=== PATIENT | female | born 1955 | race Caucasian/White ===

== ENCOUNTER 2019-11-29 01:50 | Emergency (ER) | payer BC, SELFPAY ==
[2019-11-29 01:59] VITALS: BP 126/62; PULSE 84; RESP 18; TEMP 36.7; O2SAT 96; BMI 33.3
--- NOTE | 2019-11-29 02:13 | ED_ITS ---
HPI - General Adult General: Chief complaint: General Medical Stated complaint: poss new med reaction Time Seen by Provider: 11/29/19 02:05 History of Present Illness: HPI narrative: Patient started new antianxiety medication this evening. She woke up about 1:00 this morning with the reflux belching and felt like burning all over her body felt nervous. Denies any hives or itching or throat swelling said her lips felt like they were full MD complaint: Adverse med reaction Onset (ago): minute(s) Associated symptoms: Reports no associated symptoms; Deny chest pain, dyspnea, headache(s), nausea, rash or vomiting Review of Systems Narrative: Patient has a history of anxiety Dr. Madrid start her on medication for anxiety today she took it tonight and woke up with what she describes felt like burning sensation across her whole body nervous and belching with some reflux Const: Denies: fever(s), chills or body aches Eyes: Denies: change in vision or blurry vision ENMT: Denies: throat pain or nasal congestion Card: Denies: chest pain or dyspnea on exertion Resp: Denies: dyspnea, productive cough or non-productive cough GI: Denies: abdominal pain, nausea or vomiting Musc: Denies: extremity pain Skin/Breast: Denies: rash Neuro: Denies: headache(s) Psych: Denies: anxiety or depression Fuentes/Lymph: Denies: easy bruising PFSH ED PFSH: Social History Smoking and tobacco status: current every day smoker Physical Exam Const: COMMON NORMALS: no acute distress, average body habitus and patient oriented x3 HENMT: COMMON NORMALS: normocephalic HEAD & SCALP: normal to inspection and normocephalic FACE & SINUS: normal facial exam Eye: COMMON NORMALS: conjunctivae normal GENERAL EYE: appearance normal, both eyes and all related structures CONJUNCTIVA: Yes conjunctivae normal Neck/C-Spine: COMMON NORMALS: no JVD Chest: COMMONS NORMALS: normal inspection of the chest Resp: COMMON NORMALS: normal respiratory effort and clear to auscultation bilaterally AUSCULTATION: clear to auscultation bilaterally Cardio: COMMON NORMALS: no JVD, regular rate and regular rhythm RATE: r egular rate RHYTHM: regular rhythm GI: COMMON NORMALS: Normal to inspection, nondistended, normoactive bowel sounds present Extremity: COMMON NORMALS: normal to inspection and full ROM Neuro: COMMON NORMALS: patient oriented x3 Skin: COMMON NORMALS: no rashes or lesions noted and turgor normal GENERAL SKIN EXAM: no rashes or lesions noted and turgor normal Course Vital Signs: Vital signs: Vital Signs Temperature 98.0 F 11/29/19 01:59 Pulse Rate 84 11/29/19 01:59 Respiratory Rate 18 11/29/19 01:59 Blood Pressure 126/62 11/29/19 01:59 Pulse Oximetry 96 11/29/19 01:59 Coding Level of Care Code ED Android Ui Developer for Arnold Tamez
[2019-11-29] MEDS: methylPREDNISolone (DEPO) 80 MG/ML INJ 1 mL IM (02:25)
[2019-11-29] MEDS: diphenhydrAMINE 50 mg/mL SDV 1mL IM (02:30)
[2019-11-29 02:45] VITALS: BP 120/70; PULSE 76; RESP 18; O2SAT 99
--- NOTE | 2019-11-29 03:13 | PC.NURSE ---
i agree with this assessment
== END 2019-11-29 03:14 | disposition home or self-care (01) ==
PROVIDERS: Emergency Provider Nurse Practitioner Family; PCP Family Medicine
DX: T88.7XXA Unspecified adverse effect of drug or medicament, initial encounter (principal); F17.210 Nicotine dependence, cigarettes, uncomplicated
CPT/HCPCS: 12345; 96372; 99281; 99283; J1040; J1200

== ENCOUNTER → 2020-05-28 14:05 | Outpatient (BNVA) | payer BC, SELFPAY | PROVIDERS: PCP Family Medicine; Visit Provider Nurse Practitioner Family | DX: Z20.828 Contact with and (suspected) exposure to other viral communicable diseases (principal); J06.9 Acute upper respiratory infection, unspecified | CPT/HCPCS: 87635 ==

== ENCOUNTER 2021-06-05 09:04 | Outpatient (CLI) | payer OTHER, SELFPAY ==
--- NOTE | 2021-06-05 09:11 | CT_ITS ---
WS: [id number] LDCT LUNG CANCER SCREENING TECHNIQUE: Noncontrast CT of the chest with coronal and sagittal reformatted images. CLINICAL INFORMATION: HX OF TOBACCO USE COMPARISON: None. DLP: 52.21 mGy.cm DIvol: 1.[address] scans at [facility] use at least one of these dose optimization techniques: automat ed exposure control; mA and/or kV adjustment per patient size (includes targeted exams where dose is matched to clinical indication); or iterative reconstruction. FINDINGS: The lungs are well aerated. No acute pulmonary infiltrates. No suspicious pulmonary parenchymal abnor malities. Moderate esophageal hiatal hernia. No mediastinal or hilar lymphadenopathy. Adrenal glands appear normal. Degenerative changes mid thoracic spine. CT/CT lung screening [id number] IMPRESSION: LUNG-RADS: 1-Negative FOLLOW UP: 12 Month: Continue annual screening with LDCT
== END 2021-06-05 09:05 | disposition home or self-care (01) ==
LOC: CT 09:06
PROVIDERS: PCP Physician Assistant; Visit Provider Physician Assistant
DX: Z12.2 Encounter for screening for malignant neoplasm of respiratory organs (principal); Z87.891 Personal history of nicotine dependence
CPT/HCPCS: 71271

== ENCOUNTER 2021-10-23 07:19 | Outpatient (CLI) | payer OTHER, SELFPAY ==
--- NOTE | 2021-10-23 14:20 | PFTS_ITS ---
Date of Study:10/23/21 Date of Dictation: 10/24/2021 MECHANICS: Postbronchodilator forced vital capacity (FVC) is normal. Postbronchodilator forced expiratory volume in one second (FEV1) is moderately reduced 66%. FEV1/FVC is reduced. There is no significant response to bronchodilators. FLOW VOLUME LOOP: slanting of expiratory limb suggestive of airway obstruction. LUNG VOLUMES: Total lung capacity (TLC) is normal . Residual volume (RV) is normal. DIFFUSING CAPACITY FOR CARBON MONOXIDE: Normal . INTERPRETATION: The spirometry consistent with moderate airway obstruction. There is no significant response to bronchodilators. Lung volumes are normal. Normal gas transfer Please correlate clinically. MTDD
== END 2021-10-23 07:20 | disposition home or self-care (01) ==
LOC: RT 07:19
PROVIDERS: PCP Electrodiagnostic Medicine; Visit Provider Physician Assistant
DX: J44.1 Chronic obstructive pulmonary disease with (acute) exacerbation (principal)
CPT/HCPCS: 94060; 94726; 94729; J7611

== ENCOUNTER 2021-11-08 07:18 | Outpatient (CLI) | payer OTHER, SELFPAY ==
--- NOTE | 2021-11-08 07:24 | ECG_ITS ---
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 Interpretive Statements NAME OF STUDY: EXERCISE SESTAMIBI STRESS TEST INDICATION: Shortness of Breath, PROCEDURE: The baseline electrocardiogram showed normal sinus rhythm with poor R wave progression. Low voltage complexes in the precordial leads.. At the baseline, the patient's blood pressure was 114/73 mm Hg with a heart rate of 72. The patient exercised for 5 minutes and 34 seconds on a standard Marco A protocol. Patient attained a maximum heart rate of 139 beats per minute(89% of the maximum predicted heart rate) with a blood pressure at the peak exercise of 122/65 mm Hg. The EKG at the peak exercise revealed no significant changes. Patient did not have any chest pain or any significant arrhythmis with the exercise Sestamibi was injected 1 minute prior to the peak exercise During the recovery phase, there were no new changes. Blood pressure at the end of the recovery phase was 128/73 mm Hg with a heart rate of 93 per minute. CONCLUSION: 1. No significant EKG changes with the [treadmill exercise 2. No exercise-induced chest pain or cardiac arrhythmia 3. Somewhat impaired impaired exercise tolerance, attained a maximum of 7.0 METs 4. Sestamibi/Sestamibi perfusion results pending; see separate report. Electronically Signed On 11-15-2021 12:07:44 CDT by Patric Cordoba M.D. [email or web address]
--- NOTE | 2021-11-08 07:25 | NMCV_ITS ---
NM patito perf SPECT r/s* [id number] Kristal Abreu Age: 66 Gender: F : 1955 Exam Date: 11/08/2021 07:25 Ordering Phys: Staci Madrid Technologist: NATY Hinson Exam Location: [facility] Indications: SHORTNESS OF BREATH STRESS TEST Please see separate stress test report in [facility] for full findings IMAGE PROTOCOL Rest/Stress 1 Exercise Day Radiopharmaceutical Dose (mCi) Administration Site Administered by Rest: Tc-99m 10.7 IV NATY Hinson Sestamibi Stress:Tc-99m 32.4 IV NATY Harper Sestamibi Rest: 08-Nov-2021 60 Discovery 630 Stress: 08-Nov-2021 15 Discovery 630 Radiopharmaceutical was injected at 85 % maximum heart rate. Images obtained in supine and prone position. SPECT RESULTS Technical Quality: Excellent Raw Data Analysis: Normal Image Corrections: No attenuation or motion correction applied Summed Stress Score: 0 Summed Rest Score: 0 Summed Difference Score: 0 PERFUSION FINDINGS Fairly uniform myocardial tracer uptake. No significant perfusion normalities. FUNCTIONAL RESULTS (calculated via Gated SPECT) Stress Image LV EF (%): 91 Stress EDV (mL):47 TID: 0.83 Stress ESV (mL):4 FUNCTIONAL FINDINGS: Segmental wall motion analysis revealing no gross wall motion abnormalities IMPRESSIONS 1. Unremarkable myocardial perfusion imaging. 2. Normal LV ejection fraction of 91%. 3. LV wall motion analysis revealing no gross wall motion abnormalities. 4. Normal LV volume Low probability for coronary ischemia, based on the above findings Dr Patric Cordoba MD FACC (Electronically Signed) Final Date: 08 Nov 2021 12:00 S
[2021-11-08 07:35] VITALS: BMI 34.7
[2021-11-08 10:00] VITALS: BP 128/73; PULSE 96
== END 2021-11-08 07:19 | disposition home or self-care (01) ==
LOC: CDL 07:19
PROVIDERS: PCP Electrodiagnostic Medicine; Visit Provider Physician Assistant
DX: R06.02 Shortness of breath (principal)
CPT/HCPCS: 78452; 93017; A9500

== ENCOUNTER 2022-06-10 10:22 | Outpatient (CLI) | payer MEDICARE, BC, SELFPAY ==
--- NOTE | 2022-06-10 10:15 | CT_ITS ---
WS: [id number] LDCT LUNG CANCER SCREENING TECHNIQUE: Noncontrast CT of the chest with coronal and sagittal reformatted images. CLINICAL INFORMATION: lung screening/former smoker COMPARISON: None. DLP: 75.01 mGy.cm DIvol: Mean CTDIvol: 1.60 (mGy) All CT scans at [facility] use at least one of these dose optimization techniques: automat ed exposure control; mA and/or kV adjustment per patient size (includes targeted exams where dose is matched to clinical indication); or iterative reconstruction. FINDINGS:Slight patchy opacities LEFT upper lobe laterally and RIGHT lower lobe medially likely infec tious or inflammatory. No other suspicious pulmonary parenchymal opacities. Tiny calcified granuloma LEFT lower lobe. Mild thoracic curve. Mild thoracic kyphosis. Mild aortic calcification. No mediastinal or hilar lymph adenopathy. No axillary lymphadenopathy. Moderate esophageal hiatal hernia. Adrenal glands are normal. CT/CT lung screening [id number] IMPRESSION: LUNG-RADS: 3-Probably Benign FOLLOW UP: 6 Month LDCT
== END 2022-06-10 10:23 | disposition home or self-care (01) ==
LOC: RAD 10:22
PROVIDERS: PCP Electrodiagnostic Medicine; Visit Provider Internal Medicine Pulmonary Disease
DX: Z12.2 Encounter for screening for malignant neoplasm of respiratory organs (principal); Z87.891 Personal history of nicotine dependence
CPT/HCPCS: 71271

== ENCOUNTER → 2022-08-21 09:18 | Outpatient (BNVA) | payer MEDICARE, BC, SELFPAY | PROVIDERS: PCP Electrodiagnostic Medicine; Visit Provider Internal Medicine Pulmonary Disease | DX: J44.9 Chronic obstructive pulmonary disease, unspecified (principal); Z87.891 Personal history of nicotine dependence; R06.02 Shortness of breath; J31.0 Chronic rhinitis; J32.9 Chronic sinusitis, unspecified | CPT/HCPCS: 99214 ==

== ENCOUNTER 2022-12-10 09:30 | Outpatient (CLI) | payer MEDICARE, BC, SELFPAY ==
--- NOTE | 2022-12-10 09:38 | CT_ITS ---
WS: [id number] CT CHEST TECHNIQUE: Noncontrast CT of the chest with coronal and sagittal reformatted images. CLINICAL INFORMATION: follow up bilateral lung opacities COMPARISON: CT lung screening 06/19 DLP: 272.[address] scans at [facility] use at least one of these dose optimization techniques: automated e xposure control; mA and/or kV adjustment per patient size (includes targeted exams where dose is matc hed to clinical indication); or iterative reconstruction. FINDINGS:Previously described patchy opacities LEFT upper lobe laterally and RIGHT lower lobe mediall y have essentially resolved compared to previous. No new suspicious pulmonary parenchymal abnormaliti es. Normal caliber thoracic aorta. Aortic calcification. No mediastinal or hilar lymphadenopathy. No axil bushra lymphadenopathy. Large esophageal hiatal hernia. Adrenal glands are normal. Mild thoracic kyphos is. Mild thoracic curve. Disc space narrowing worse in the mid thoracic spine. CT/CT chest wo con [id number] IMPRESSION: 1. Previously described patchy opacities LEFT upper lobe laterally and RIGHT l ower lobe medially have essentially resolved compared to previous. No new suspi cious pulmonary parenchymal abnormalities. 2. Large esophageal hiatal hernia is unchanged. 3. No other suspicious findings.
== END 2022-12-10 09:31 | disposition home or self-care (01) ==
PROVIDERS: PCP Electrodiagnostic Medicine; Visit Provider Internal Medicine Pulmonary Disease
DX: J44.9 Chronic obstructive pulmonary disease, unspecified (principal); Z87.891 Personal history of nicotine dependence; K44.9 Diaphragmatic hernia without obstruction or gangrene
CPT/HCPCS: 71250

== ENCOUNTER → 2023-02-18 10:22 | Outpatient (BNVA) | payer MEDICARE, BC, SELFPAY | PROVIDERS: PCP Electrodiagnostic Medicine; Visit Provider Internal Medicine Pulmonary Disease | DX: J44.9 Chronic obstructive pulmonary disease, unspecified (principal); J31.0 Chronic rhinitis; J32.9 Chronic sinusitis, unspecified | CPT/HCPCS: 99214 ==

== ENCOUNTER → 2023-10-21 08:44 | Outpatient (BNVA) | payer MEDICARE, BC, SELFPAY | PROVIDERS: PCP Electrodiagnostic Medicine; Visit Provider Internal Medicine Pulmonary Disease | DX: J44.9 Chronic obstructive pulmonary disease, unspecified (principal); J31.0 Chronic rhinitis; J32.9 Chronic sinusitis, unspecified; Z87.891 Personal history of nicotine dependence | CPT/HCPCS: 99214 ==

== ENCOUNTER → 2023-11-24 09:38 | Outpatient (BNVA) | payer MEDICARE, BC, SELFPAY | PROVIDERS: PCP Electrodiagnostic Medicine; Visit Provider Student in an Organized Health Care Education/Training Program | DX: M75.41 Impingement syndrome of right shoulder; M75.31 Calcific tendinitis of right shoulder | CPT/HCPCS: 20610; 73030; 99204 ==

== ENCOUNTER → 2024-03-04 08:00 | Outpatient (BNVA) | payer MEDICARE, BC, SELFPAY | PROVIDERS: PCP Electrodiagnostic Medicine; Visit Provider Physician Assistant | DX: M75.41 Impingement syndrome of right shoulder (principal); M75.31 Calcific tendinitis of right shoulder | CPT/HCPCS: 99213 ==

== ENCOUNTER 2024-04-27 08:59 | Outpatient (CLI) | payer MEDICARE, BC, SELFPAY ==
--- NOTE | 2024-04-27 09:00 | MM_ITS ---
WS: [id number] BILATERAL SCREENING DIGITAL TOMOSYNTHESIS MAMMOGRAM WITH CAD HISTORY: SCREENING COMPARISON: 04/28/2018 Bilateral CC and MLO views with tomosynthesis and synthetic mammography submitted. Computer aided det ection analyzed. Breast composition: The breasts are almost entirely fatty. No suspicious masses, microcalcifications or architectural distortion. MM/MM scr BI tomosynthesis [id number] IMPRESSION: BI-RADS: 1 - Negative. FOLLOW UP: 1 Year Follow-up
== END 2024-04-27 09:00 | disposition home or self-care (01) ==
LOC: MOBLMAM 09:04
PROVIDERS: PCP Electrodiagnostic Medicine; Visit Provider Electrodiagnostic Medicine
DX: Z12.31 Encounter for screening mammogram for malignant neoplasm of breast (principal); R92.313 Mammographic fatty tissue density, bilateral breasts
CPT/HCPCS: 77063; 77067

== ENCOUNTER 2024-07-01 10:57 | Outpatient (CLI) | payer MEDICARE, BC, SELFPAY ==
--- NOTE | 2024-07-01 11:06 | CT_ITS ---
WS: [id number] LDCT LUNG CANCER SCREENING HISTORY: HX OF TOBACCO USE TECHNIQUE: Axial imaging performed from the apices to 1 cm below the costophrenic angles. Coronal and sagittal reformats are submitted with axial MIP series. All CT scans at [facility] use at least one of these dose optimization techniques: automated exposure control; mA and/or kV adjustment per patient size (includes targeted exams where dose is matched to clinical indication); or iterativ e reconstruction. DLP: 61.40 mGy.cm DIvol: Mean CTDIvol: 1.40 (mGy) COMPARISON: 12/10/2022 Diagnostic quality: Satisfactory Lungs: Hypoinflated lungs. No pulmonary mass. New nodules are subsolid in the posterior RIGHT lower l obe. There are 2 subsolid nodules with the largest measuring 10 mm. These were not present on the kraig or study. No endobronchial lesions. Heart: Normal size heart with no pericardial effusion.. Other findings: Small mediastinal and hilar lymph nodes. Minimal atherosclerosis thoracic aorta. Norm al size pulmonary artery. Large hiatal hernia. No adrenal mass. CT/CT lung screening [id number] IMPRESSION: LUNG-RADS: 4A-Probably Suspicious FOLLOW UP: 3 Month LDCT OTHER FINDINGS (S MODIFIER): None.
== END 2024-07-01 10:58 | disposition home or self-care (01) ==
LOC: RAD 11:02
PROVIDERS: PCP Electrodiagnostic Medicine; Visit Provider Electrodiagnostic Medicine
DX: Z12.2 Encounter for screening for malignant neoplasm of respiratory organs (principal); Z87.891 Personal history of nicotine dependence; R91.8 Other nonspecific abnormal finding of lung field; K44.9 Diaphragmatic hernia without obstruction or gangrene; J84.89 Other specified interstitial pulmonary diseases
CPT/HCPCS: 71271

== ENCOUNTER 2024-07-26 13:09 | Outpatient (CLI) | payer MEDICARE, BC, SELFPAY ==
--- NOTE | 2024-07-26 13:11 | CT_ITS ---
WS: [id number] CT chest w con* [id number] HISTORY: SOLITARY LUNG NODULE TECHNIQUE: Axial imaging performed through the thorax. Coronal and sagittal reformats are submitted. All CT scans at [facility] use at least one of these dose optimization techniques: automated exposure control; mA and/or kV adjustment per patient size (includes targeted exams where dose is mat ched to clinical indication); or iterative reconstruction. CONTRAST: Omnipaque 350; 100 mL IV. DLP: 335.30 mGy.cm COMPARISON: 07/01/2024 Lungs and central airway: Mild pulmonary hyperinflation. Previously described subsolid, subpleural no dules in the RIGHT lower lobe are reidentified. The largest is 1.4 cm. Smaller nodule measures 0.7 cm . No new or enlarging pulmonary mass. Pleura: Normal. No pleural effusion. Heart and pericardium: Normal size heart with no pericardial effusion. Mediastinum and karl: Indeterminate hilar lymph nodes. Largest is 11 mm at the LEFT hilum. Small para tracheal lymph nodes. Paratracheal lymph nodes appear to be slightly smaller in size than 07/01/2024. Vessels: Normal size aortic and pulmonary artery. No coronary artery calcifications. Chest wall and lower neck: No soft tissue masses. Upper abdomen: Contracted gallbladder, probably due to nonfasting state. Normal adrenal glands. Large esophageal hernia. Osseous structures: Degenerative changes in the thoracic spine. Disc spaces are narrowed. Osteoblasti c changes are noted involving the anterior endplates of several midthoracic vertebral bodies. CT/CT chest w con* [id number] IMPRESSION: 1. Slightly improved subsolid opacifications RIGHT lower lobe since 07/01/2024. This is only a 3-week follow-up CT from 07/01/2024. Consider additional chest CT follow-up in 6 months. 2. 11 mm LEFT hilar lymph node. Probably reactive. May've been present on prio r studies but these were performed without IV contrast. 3. Large hiatal hernia.
[2024-07-26] MEDS: iohexol 350 mg/mL 500 mL Btl (per mL) IV (13:29)
== END 2024-07-26 13:10 | disposition home or self-care (01) ==
LOC: RAD 13:10
PROVIDERS: PCP Electrodiagnostic Medicine; Visit Provider Electrodiagnostic Medicine
DX: R91.8 Other nonspecific abnormal finding of lung field (principal); R59.0 Localized enlarged lymph nodes; K44.9 Diaphragmatic hernia without obstruction or gangrene; M47.894 Other spondylosis, thoracic region; R93.7 Abnormal findings on diagnostic imaging of other parts of musculoskeletal system
CPT/HCPCS: 71260

== ENCOUNTER → 2024-07-28 15:26 | Outpatient (BNVA) | payer MEDICARE, BC, SELFPAY | PROVIDERS: PCP Electrodiagnostic Medicine; Visit Provider Physician Assistant | DX: M75.31 Calcific tendinitis of right shoulder (principal); M75.41 Impingement syndrome of right shoulder | CPT/HCPCS: 20610; 99213; J3301 ==

== ENCOUNTER → 2024-11-01 15:25 | Outpatient (BNVA) | payer MEDICARE, BC, SELFPAY | PROVIDERS: PCP Electrodiagnostic Medicine; Visit Provider Physician Assistant | DX: M75.31 Calcific tendinitis of right shoulder (principal); M75.41 Impingement syndrome of right shoulder; G56.03 Carpal tunnel syndrome, bilateral upper limbs; G56.01 Carpal tunnel syndrome, right upper limb | CPT/HCPCS: 73030; 99213 ==

== ENCOUNTER 2024-11-03 10:59 | Outpatient (CLI) | payer MEDICARE, BC, SELFPAY ==
--- NOTE | 2024-11-03 11:00 | MR_ITS ---
WS: [id number] MRI RIGHT SHOULDER HISTORY: impingement of right shoulder COMPARISON: Radiograph 11/01/2024 TECHNIQUE: Multiplanar sequences of the shoulder joint are submitted. Moderate AC joint arthritis. There is fluid through the AC joint with hypertrophic bone and soft tissue surround the distal clavicle and acromion. Small amount of fluid in the subacromial and subdeltoid bursa. Moderate subacromial impingement. Enthesopathy along the distal undersurface of the acromion measures 3 mm. No os acromion. Biceps tendon normally positioned in the bicipital groove. Hypointense nodule in the distal supraspinatus tendon consistent with hydroxyapatite deposition disease. Calcific deposition measures 10 mm. There are several small calcific deposits along the supraspinatus tendon. Additional tendinopathy in the supraspinatus tendon at the level of the subacromial impi ngement. No muscle atrophy or edema. Supraspinatus tendon and muscle are being deformed by the AC joint hypertrophic changes. Subscapularis tendon and the infraspinatus tendons and teres minor are intact. No labral tear. There is an additional hypointense nodule measuring 5 mm closely associated with the bicipital groove and the distal subscapularis tendon. I suspect this is additional calcific deposit which is displacing the distal subscapularis tendon. MR/MR shoulder RT wo con* [id number] IMPRESSION: 1. Calcific tendinitis involving the distal supraspinatus tendon. Small cluste r of calcium deposition measuring 10 mm. 2. Moderate AC joint arthritis. 3. Tendinopathy in the distal supraspinatus tendon secondary to subacromial im pingement. 4. Moderate subacromial impingement. 5. Additional osteophyte or calcific deposit associated with the bicipital dafne ove displacing the distal subscapularis tendon.
== END 2024-11-03 11:00 | disposition home or self-care (01) ==
LOC: RAD 11:01
PROVIDERS: PCP Electrodiagnostic Medicine; Visit Provider Physician Assistant
DX: M75.31 Calcific tendinitis of right shoulder (principal); M75.41 Impingement syndrome of right shoulder; M19.011 Primary osteoarthritis, right shoulder; M67.813 Other specified disorders of tendon, right shoulder; M25.711 Osteophyte, right shoulder; M89.38 Hypertrophy of bone, other site; R93.7 Abnormal findings on diagnostic imaging of other parts of musculoskeletal system
CPT/HCPCS: 73221

== ENCOUNTER → 2024-12-01 07:51 | Outpatient (BNVA) | payer MEDICARE, BC, SELFPAY | PROVIDERS: PCP Electrodiagnostic Medicine; Referring Provider Physician Assistant; Visit Provider Psychiatry & Neurology Neurology | DX: G56.01 Carpal tunnel syndrome, right upper limb (principal) | CPT/HCPCS: 95912 ==

== ENCOUNTER → 2024-12-27 09:24 | Outpatient (BNVA) | payer MEDICARE, BC, SELFPAY | PROVIDERS: PCP Electrodiagnostic Medicine; Visit Provider Student in an Organized Health Care Education/Training Program | DX: M75.31 Calcific tendinitis of right shoulder (principal); M75.41 Impingement syndrome of right shoulder; G56.01 Carpal tunnel syndrome, right upper limb | CPT/HCPCS: 20610; 99214; J3301; J9999 ==

== ENCOUNTER 2025-02-08 06:57 | Outpatient (CLI) | payer MEDICARE, BC, SELFPAY ==
--- NOTE | 2025-02-08 07:08 | CT_ITS ---
WS: [id number] CT chest w con* [id number] HISTORY: MULTIPLE LUNG NODULES TECHNIQUE: Axial imaging performed through the thorax. Coronal and sagittal reformats are submitted. All CT scans at [facility] use at least one of these dose optimization techniques: automated exposure control; mA and/or kV adjustment per patient size (includes targeted exams where dose is matched to clinical indication); or iterative reconstruction. CONTRAST: Omnipaque 350; 100 mL IV. DLP: 300.29 mGy.cm COMPARISON: 07/26/2024, 07/01/2024, 12/10/2022 Lungs and central airway: Hyperinflated lungs with centrilobular emphysema. Reidentified are the subsolid opacifications in the posterior RIGHT lower lobe. The largest subsolid opacification is increased in size measuring 14 x 9 mm. Central lucency is new. The smaller subsolid opacification has not changed with a maximum diameter of 9 mm. No additional suspicious masses or nodules. Pleura: Normal. No pleural effusion. Heart and pericardium: Normal size heart with no pericardial effusion. Mediastinum and karl: No increase in size of mediastinal or hilar lymph nodes. The identified is the 9 mm LEFT hilar lymph node which has not increased in size. Vessels: Normal size aortic and pulmonary artery. No coronary artery calcifications. Chest wall and lower neck: No soft tissue masses. Upper abdomen: Large hiatal hernia. Visualized liver and adrenal glands are negative. Osseous structures: Mild increase in thoracic kyphosis. CT/CT chest w con* [id number] IMPRESSION: 1. Slight increase in size of the subsolid opacification in the periphery of t he RIGHT lower lobe now measuring 14 x 9 mm. The smaller opacification has not changed. Recommend continued imaging follow-up. Recommend follow-up chest CT in 6 months. PET/CT may be of benefit at this time also. Low-grade neoplasm needs to be excluded. 2. No mediastinal or hilar adenopathy. 3. Centrilobular emphysema.
[2025-02-08 07:50] LABS: Blood Urea Nitrogen 11 mg/dL (8-23)
[2025-02-08] MEDS: iohexol 350 mg/mL 500 mL Btl (per mL) IV (07:50)
== END 2025-02-08 06:58 | disposition home or self-care (01) ==
LOC: RAD 06:58
PROVIDERS: Radiology Diagnostic Radiology; PCP Electrodiagnostic Medicine; Visit Provider Electrodiagnostic Medicine
DX: R91.8 Other nonspecific abnormal finding of lung field (principal); J43.2 Centrilobular emphysema; M40.204 Unspecified kyphosis, thoracic region; K44.9 Diaphragmatic hernia without obstruction or gangrene
CPT/HCPCS: 71260; 82565; 84520

== ENCOUNTER 2025-03-24 10:24 | Outpatient (CLI) | payer MEDICARE, BC, SELFPAY ==
--- NOTE | 2025-03-24 10:32 | PETR_ITS ---
PROCEDURE INFORMATION: Exam: PET/CT Whole Body Exam date and time: 03/24/2025 11:38 AM Age: 70 years old Clinical indication: Abnormal findings; Abnormal finding of lung field; Additional info: Multiple nodules of the lung LABS AND CLINICAL REPORTS: Glucose: 122 mg/dl Treatment strategy for malignancy (PET staging): Restaging (PS) TECHNIQUE: Imaging protocol: Following at least four-hour fasting and following the injection of radiopharmaceutical, low dose CT images were obtained. Then, PET images were obtained. Attenuation corrected images were constructed using the CT scan. Fused images of PET and CT were reviewed. The standardized uptake values (SUV) reported below are maximum values within a region of interest, expressed in gm/ml. Exam includes the whole body. SUV normalization method: BodyWeight Radiopharmaceutical: 10.6 mCi F-18 FDG (Fluorodeoxyglucose), IV. Time of imaging post radiopharmaceutical administration: 47 minutes Injection site: LAC COMPARISON: 1. CT chest wo con [id number] 12/10/2022 9:[address] chest w con* [id number] 02/08/2025 7:31 AM FINDINGS: Brain: Visualized brain has normal physiologic uptake. Paranasal sinuses: Non FDG avid left maxillary sinus mucous retention cysts. Otherwise clear. Pharynx: Symmetric tonsillar FDG uptake without underlying CT abnormality is likely benign physiologic or inflammatory. Larynx: No abnormal uptake. Lungs, pleura and trachea: No abnormal uptake. Mild dependent atelectasis. 1.4 cm subpleural posterior right lower lobe opacity on axial image 424 is non FDG avid. No consolidation or mass. Heart: Normal physiologic uptake. Mediastinal space: No abnormal uptake. Diaphragm: Moderate hiatal hernia. Liver: No abnormal uptake. Gallbladder and biliary ducts: No abnormal uptake. Pancreas: No abnormal uptake. Spleen: No abnormal uptake. Adrenal glands: No abnormal uptake. Kidneys and ureters: Normal physiologic uptake. Stomach and bowel: No abnormal uptake. Colonic diverticulosis without findings of diverticulitis. Vasculature: No abnormal uptake. Mild systemic atherosclerotic calcification without aortic aneurysm. Lymph nodes: Low-level FDG uptake at nonenlarged mediastinal nodes and bilateral karl. Skeleton: Degenerative change along the axial skeletal system and acromioclavicular joints. Soft tissues: Linear FDG uptake at posterior left shoulder musculature without underlying CT abnormality is likely strain or possibly physiologic activation. Low-level uptake along the posterior paraspinal upper back musculature, bilateral forearms, and bilateral anterior tibialis and foot musculature without underlying CT abnormality is likely benign physiologic activation. METRICS: Mediastinal blood pool: SUV mean 2.6 Liver uptake: SUV mean 2.8 PET/PET skull to thigh INIT [id number] IMPRESSION: 1. Non FDG avid 1.4 cm subpleural posterior right lower lobe opacity favors benignity, indolent neoplasm difficult to entirely exclude. Continued follow-up chest CT recommended. 2. Low-level FDG uptake at nonenlarged mediastinal lymph nodes and bilateral karl likely benign granulomatous or reactive. 3. Additional chronic and incidental findings as above.
== END 2025-03-24 10:25 | disposition home or self-care (01) ==
PROVIDERS: PCP Electrodiagnostic Medicine; Visit Provider Electrodiagnostic Medicine
DX: R91.8 Other nonspecific abnormal finding of lung field (principal)
CPT/HCPCS: 78815; A9552

== ENCOUNTER → 2025-04-04 13:23 | Outpatient (BNVA) | payer MEDICARE, BC, SELFPAY | PROVIDERS: PCP Electrodiagnostic Medicine; Visit Provider Student in an Organized Health Care Education/Training Program | DX: M75.41 Impingement syndrome of right shoulder (principal); M75.31 Calcific tendinitis of right shoulder; M75.21 Bicipital tendinitis, right shoulder; M19.011 Primary osteoarthritis, right shoulder | CPT/HCPCS: 99214 ==

== ENCOUNTER 2025-05-01 14:19 | Outpatient (CLI) | payer MEDICARE, BC, SELFPAY ==
--- NOTE | 2025-05-01 14:28 | MM_ITS ---
WS: [email or web address] BILATERAL 3D TOMOSYNTHESIS DIGITAL SCREENING MAMMOGRAPHY WITH CAD CLINICAL INFORMATION: SCREENING HISTORY: Screening mammogram. No current complaints. COMPARISON: 2023 TECHNIQUE: Bilateral CC and MLO views. FINDINGS: Scattered fibroglandular densities bilaterally. No suspicious focal mass, asymmetry, calcifications, or architectural distortion. No evidence of malignancy. Lucent centered calcification LEFT breast MM/MM scr BI tomosynthesis [id number] IMPRESSION: DENSITY: There are scattered areas of fibroglandular density. BI-RADS: 2 - Benign. FOLLOW UP: 1 Year Follow-up Recommend return to annual screening mammography.
== END 2025-05-01 14:20 | disposition home or self-care (01) ==
LOC: RAD 14:20
PROVIDERS: PCP Electrodiagnostic Medicine; Visit Provider Electrodiagnostic Medicine
DX: Z12.31 Encounter for screening mammogram for malignant neoplasm of breast (principal); R92.323 Mammographic fibroglandular density, bilateral breasts; R92.1 Mammographic calcification found on diagnostic imaging of breast
CPT/HCPCS: 77063; 77067

== ENCOUNTER 2025-05-04 12:25 | Day surgery (SDC) | payer MEDICARE, BC, SELFPAY ==
[2025-05-04] VITALS (11 sets, daily range): BP systolic 87–119; BP diastolic 59–82; PULSE 60–75; RESP 12–18; TEMP 36.1–36.3; O2SAT 90–100; BMI 30.7
[2025-05-04] MEDS: acetaminophen 1,000 MG/100 ML PIGGYBACK 400 MG IV (13:45)
--- NOTE | 2025-05-04 13:52 | W.PM.OPSUD ---
Surgery/Procedure H&P Update DATE OF PROCEDURE: May 04, 2025 DATE H&P PERFORMED: 04/04/25 H&P UPDATE INFORMATION: I have reviewed H&P completed within last 30 days, I have examined patient prior to procedure and No changes to prior documentation PREOP DIAGNOSIS: Right shoulder cuff impingement, calcific tendinitis, biceps tendinitis, AC PRIMARY INDICATION FOR PROCEDURE: Right shoulder cuff impingement, calcific tendinitis, biceps tendinitis, AC arthritis PLANNED PROCEDURE: Operation Date: 05/04/25 15:30 Proposed Procedures p RIGHT Shoulder Diagnostic and Surgical Arthroscopy w/ Excision of Calcific Tendonitis(Right) - Luis Osuna DO s Subacromial Decompression(Right) - DO tano Peñaloza Acromioclavicular (AC) Joint Resection(Right) - DO tano Peñaloza POSSIBLE Rotator Cuff Debridement Vs. Repair(Right) - DO tano Peñaloza POSSIBLE Biceps Tenotomy vs. Tenodesis(Right) - Luis Osuna DO
[2025-05-04] MEDS: ceFAZolin 2,000 MG in sodium chloride 0.9% (plus) 50 ML 100 MG IV (14:04)
--- NOTE | 2025-05-04 14:19 | ANES.PROC ---
Anesthesia Procedures Procedure/Date: 05/04/25 Right interscalene peripheral nerve block for postoperative pain control Nerve Block ^: Nerve Block 1: Main Anesthesia: other (100 mcg of fentanyl) Time Out Performed: Yes Consent: requested by attending/covering physician and from patient Laterality: Right Nerve block location: interscalene Anesthesia monitors applied: pulse oximetry, EKG, BP cuff and oxygen Nerve block position: supine Anesthetic Used: ropivicaine 0.5% Amount of anesthesia used (mL): 30 Ultrasound used to: recognize landmarks Nerve Stimulator Used?: Yes Interscalene/Femoral BLK: other needle (pjunk 4inch) Injection: neg aspiration of heme Patient Tolerated Procedure: well Complications: none Additional Comments: Decadron 4 mg added to block
--- NOTE | 2025-05-04 16:11 | W.PM.BPON ---
Date of Procedure: [May 04, 2025] Surgeon: [Dr. Osuna DO] Ticket Dispenser Changer(s): [Rylan Osuna PA-C] Procedure(s) performed: Right shoulder diagnostic and surgical arthroscopy AC joint resection Loose body removal Subacromial decompression Biceps tenodesis Subscapularis repair and rotator cuff repair Calcific tendinitis excision Labral debridement] Findings of the procedure(s): [Right shoulder AC joint arthritis, loose bodies, subacromial bursitis, biceps tendon partial tearing, subscapularis tear and rotator cuff tear and calcific tendinitis and labral partial tearing. Procedure went well and is planned] Estimated blood loss: [10 ml] Specimen(s) removed: [N/A] Post-operative diagnosis: [Right shoulder AC joint arthritis, loose bodies, subacromial bursitis, biceps tendon partial tearing, subscapularis tear and rotator cuff tear and calcific tendinitis and labral partial tearing]
--- NOTE | 2025-05-04 16:21 | PM.PACU ---
PACU note Narrative: Patient is a 70-year-old female that just right shoulder arthroscopy. Patient transferred to PACU in stable condition. Pain is well controlled. shoulder Dressing on , dry and in place. Patient's operative arm is in a shoulder immobilizer. Patient is awake and alert and able to respond to my questions accordingly. Patient's fingers are warm with good perfusion. Normal cap refill under 2 seconds. Unable to assess further range of motion in arm due to sling. Sensation hand intact. Patient can wiggle fingers. Exam: awake Disposition: discharged
--- NOTE | 2025-05-04 16:22 | P.OP_ITS ---
Operative Report Date of procedure: May 04, 2025 Surgeon: Luis Osuna DO Design Engineering Manager: Rylan Osuna PA-C: PA was necessary for assistance in this case with shoulder positioning to execute the procedure, assistance with instrumentation, as well as implant fixation when necessary, assist with wound closure and dressing application. Procedure: Preoperative diagnosis: Right shoulder cuff impingement, calcific tendinitis, biceps tendinitis, AC arthritis Post-op diagnosis: Right shoulder AC joint arthritis, loose bodies, subacromial bursitis, biceps tendon partial tearing, subscapularis tear and rotator cuff tear and calcific tendinitis and labral partial tearing Procedure done: Right?shoulder?diagnostic and surgical arthroscopy with arthroscopic rotator cuff repair (small) Right?shoulder?diagnostic and surgical arthroscopy biceps tenodesis Right?shoulder?diagnostic and surgical arthroscopy labral debridement Right shoulder diagnostic and surgical arthroscopy with loose bodies removal Right shoulder diagnostic and surgical arthroscopy with subscapularis tendon repair Right shoulder diagnostic and surgical arthroscopy with calcific tendinitis excision Right?shoulder?diagnostic and surgical arthroscopy acromioclavicular joint resection Right?shoulder?diagnostic and surgical arthroscopy subacromial decompression (acromioplasty and bursectomy) Surgeon: Luis Osuna DO Estimated blood loss: 10mL IV fluids: 1200 mL Implants: Arthrex 4.75 loop and tack bicep tenodesis kit Arthrex 4.75 swivel lock Arthrex scorpion and suture tape Complications: None Condition: stable Disposition: same day Brief History: Patient been seen and worked up in the outpatient setting for?right?shoulder?pain.? Pt had an MRI which showed findings below.? Patient's failed conservative treatment and has weakness.? We talked about treatment options far as nonoperative and operative intervention..? We talked about risk benefits complication alternatives surgical nonsurgical treatment options.? Understanding risk of surgery she agrees to proceed with surgical intervention.? All questions have been answered at this time.? Patient elects proceed with surgery and consent obtained in preoperative holding area for right shoulder diagnostic and surgical arthroscopy with subacromial decompression, AC joint resection, possible rotator cuff debridement versus repair, calcific tendinitis excision, possible bicep tenotomy versus tenodesis. MR/MR shoulder RT wo con* [id number] IMPRESSION: 1. Calcific tendinitis involving the distal supraspinatus tendon. Small cluster of calcium deposition measuring 10 mm. 2. Moderate AC joint arthritis. 3. Tendinopathy in the distal supraspinatus tendon secondary to subacromial impingement. 4. Moderate subacromial impingement. 5. Additional osteophyte or calcific deposit associated with the bicipital groove displacing the distal subscapularis tendon. Procedure: Patient seen evaluated in the preoperative holding area.? Consent reviewed and signed with patient.? Once again reviewed patient's MRI results as well as? planned surgical intervention.? Correct extremity marked.? Patient seen evaluated by anesthesia department received regional anesthesia.? Once ready for surgery was taken back to the operative suite.? Patient then subsequently underwent anesthesia per the anesthesia department was transported onto the OR table.? Patient was then placed into a lateral decubitus position with a beanbag and was appropriately secured to the bed.? All bony prominences well-padded.? Patient then had the?right?upper extremity was then prepped and draped in standard orthopedic fashion.? Patient received appropriate preoperative antibiotics.? Final timeout performed. The?right?upper extremity was then held in hanging from traction utilizing sterile technique.? Next started with standard diagnostic and surgical arthroscopy with posterior portal position introduced arthroscope into the glenohumeral joint.? Visualized the glenohumeral joint I then introduced a spinal needle within the rotator cuff interval to confirm appropriate anterior portal placement.? Once this was confirmed I then made my small incision and then introduced my arthroscopic shaver into the glenohumeral joint.? Immediately in the glenohumeral joint there was a cluster of Multiple cartilaginous loose bodies altogether I introduced arthroscopic shaver as these were small but numerous and introduced arthroscopic shaver and evacuated all loose bodies cartilage. Patient was found to have a tear at the upper third border of the subscapularis tendon patient was also found to have unstable bicep tendon anchor complex at the superior labral complex with superior labral tearing. As result plan was for subscapularis tendon repair and biceps tenodesis. patient had biceps tendon tearing as well as Superior labral tear. Patient had appreciable unstable biceps anchor most pronounced in the superior labrum. Given there appears to be healthy intra-articular tendon plan was for an intra- articular biceps tenodesis at the superior portion as it enters the intertubercular groove. Thermal wand introduced into the rotator interval. I then release of the rotator interval to have appropriate visualization and the ability to perform biceps tenodesis. At this point I established a purple passport cannula which was introduced. Next I performed an Arthrex loop and tack biceps tenodesis. Passer was then made around the tendon luggage tag stitch around and then thru the tendon per Arthrex protocol, I then utilized a thermal wand to release the biceps tendon at the anchor to perform with tenotomy. Next I utilized a arthroscopic scorpion and the suture passer from the tenodesis kit to make a passed through the upper third border at the site of the tear of the subscapularis tendon I utilized a fiber link suture to luggage tag this and then subsequently purchase through the tendon again I had bluntly freed up adhesions anteriorly and posteriorly so I had direct visualization of just passing this through the upper third border the subscapularis tendon once this had excellent purchase I then loaded this into the Arthrex 4.75 swivel lock in addition to loading the suture from the bicep tenodesis. A punch was then placed in appropriate position at the entry point into the intertubercular groove just superior to the subscapularis tendon. Punch was then introduced to the appropriate depth. The suture loaded on the swivel lock was then advanced held under appropriate tension and shoulder lock anchor was then advanced and had excellent fixation. Excess suture was then cut biceps tenodesis and subscapularis tendon repair was complete. I then utilized a thermal wand to seal the edges of the superior labrum. ?Next there was significant labral tearing at biceps anchor and circumferential.? ? I then subsequently utilized a a arthroscopic shaver and thermal wand to perform a labral debridement.? This point time I then visualized the glenohumeral joint.? 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 Axillary pouch was free of loose bodies from viewing the posterior portal.? Next a visualized the rotator cuff superiorly and there was found to be a small undersurface fraying of the rotator cuff. At this point I am introduced arthroscopic shaver and gently debrided the undersurface of the rotator cuff at this spot. This completed my work intra-articular moved to the subacromial space. all fluid was suctioned free of the joint.? ?Next I reintroduced the arthroscope posteriorly.? And went to the subacromial space.? I established my lateral working portal. Thermal wand was then introduced laterally and then I subsequently performed extensive bursectomy of the subacromial space.? Patient had a large anterior bone spur.? At this point time I proceeded with my AC joint resection thermal wand was used and track to the anterior edge of the acromion and then tracked all the way to the AC joint.? Once identified the AC joint this was very arthritic in nature.? Thermal wand was placed anteriorly to establish appropriate plane for AC joint resection.? Once appropriate margins and anterior inferior and anterior capsule was released I then introduced arthroscopic shaver and a bur and performed AC joint resection of both the acromion to cope plane at the AC joint and a distal clavicle resection was then performed totaling 1 cm in size and was confirmed.? This completed my AC joint resection and I then introduced the arthroscopic shaver laterally while continuing to view posteriorly.? I then performed an acromioplasty to complete my subacromial decompression prior to evaluating for possible rotator cuff tear and calcific tendinitis. At this point in time the shoulder was taken through range of motion and there was a large appreciable calcium deposit on the anterior border of the supraspinatus tendon this communicated interval which once again confirmed this being near the biceps tendon. That was seen on MRI. I subsequently utilized a spinal needle and fenestrated the rotator cuff to create a vent holes for the calcific tendinitis I then numerous times thoroughly irrigated and expressed all aspects of the calcific tendinitis this was consistent with roughly a centimeter in size. At this point in time once this was evacuated to its entirety there was a remnant of a hole full-thickness rotator cuff tear anteriorly on the supraspinatus tendon. Given the small size this did not need a medial and lateral row configuration as result my plan was for a horizontal mattress stitch with a single lateral row anchor.? As result I loaded and Arthrex scorpion with fiber tape and subsequently.? A horizontal mattress purchase appropriately spaced to the small tear of the supraspinatus tendon.? At this point in time and then introduced a shaver to debride the rotator cuff footprint and decorticate the footprint in preparation for repair, next I marked by swivel lock position.? Fiber tape was then loaded into a 4.75 swivel lock I then subsequently punched and then subsequently placement 4.75 swivel lock while maintaining appropriate tension and repair of rotator cuff and this was advanced with excellent fixation I then had a final confirmation of appropriate repair of the supraspinatus rotator cuff tendon tear.? Sutures were then cut with an arthroscopic suture cutter and subsequently evaluated the rotator cuff repair.? Repair was found to be satisfactory?shoulder?was taken through range of motion and the repair moved as a unit with no evidence of loss of fixation. ?I then switched the arthroscope to the lateral portal to confirm this tension- free repair.? I took the?shoulder?through range of motion and the rotator cuff repair was stable and moved as a unit. ?Next I then introduced the arthroscopic shaver posteriorly to complete my subacromial decompression appropriate complaining all the way up to the lateral edge of the acromion.? This completed the surgery.? All fluid was suctioned from the?shoulder.? All instruments were removed.? The lateral incision was then closed with nylon stitches.? As well as the portal sites closed with portal nylon stitches.? Xeroform 4 x 4's ABD and tape was then applied to the?right?shoulder?and was placed into a?shoulder?abduction pillow sling for rotator cuff repair.? Patient was then awakened from anesthesia and then taken back to PACU in stable condition.? Patient tolerated procedure without any issues. Disposition: Patient taken back in stable condition recovering well.? Dressings on in place clean dry and intact.? Will be nonweightbearing to the?right?upper extremity.? Follow rotator cuff repair protocol.? Patient to follow-up with me in the office in 2 weeks.? Patient will receive appropriate discharge instruction as well as pain medication postoperatively.? All questions answered.? We will contact the office for any questions or concerns.
[2025-05-04] MEDS: ondansetron 2 mg/ML SDV 2 mL 4 MG IVP (17:29)
--- NOTE | 2025-05-04 18:06 | ANE.PACU2 ---
Inpatient post-anesthesia follow up: Airway intact: Yes Vital signs: Temperature 97.3 F Pulse Rate 74 Respiratory Rate 18 Blood Pressure 118/79 Pulse Oximetry 92 Oxygen Delivery Me thod Room Air Oxygen Flow Rate 2 Fraction of Inspir ed Oxygen Hydration adequate: Yes Nausea and vomiting: No Pain level: 1 Mental status: Baseline
== END 2025-05-04 18:00 | disposition home or self-care (01) ==
PROVIDERS: PCP Electrodiagnostic Medicine; Visit Provider Student in an Organized Health Care Education/Training Program
PROC: (CPT 29805; principal; 2025-05-04 15:30)
PROC: (CPT 29826; 2025-05-04 15:30)
PROC: (CPT 29824; 2025-05-04 15:30)
PROC: (CPT 29827; 2025-05-04 15:30)
PROC: (CPT 29827; 2025-05-04 15:30)
PROC: (CPT 29827; 2025-05-04 15:30)
PROC: (CPT 29827; 2025-05-04 15:30)
PROC: (CPT 29827; 2025-05-04 15:30)
DX: M75.41 Impingement syndrome of right shoulder (principal); M75.31 Calcific tendinitis of right shoulder; M75.21 Bicipital tendinitis, right shoulder; M19.011 Primary osteoarthritis, right shoulder; M75.51 Bursitis of right shoulder; S46.211A Strain of muscle, fascia and tendon of other parts of biceps, right arm, initial encounter; S46.811A Strain of other muscles, fascia and tendons at shoulder and upper arm level, right arm, initial encounter; S43.431A Superior glenoid labrum lesion of right shoulder, initial encounter; X58.XXXA Exposure to other specified factors, initial encounter; M24.011 Loose body in right shoulder; M75.101 Unspecified rotator cuff tear or rupture of right shoulder, not specified as traumatic; K21.9 Gastro-esophageal reflux disease without esophagitis; E03.9 Hypothyroidism, unspecified; F32.A Depression, unspecified; Z87.891 Personal history of nicotine dependence
CPT/HCPCS: 29827; 29828; 29826; 64415; 29824; C1713; J0131; J0169; J0690; J1100; J1885; J2405; J2704; J3490; J7030; J9999

== ENCOUNTER → 2025-05-16 13:39 | Outpatient (BNVA) | payer MEDICARE, BC, SELFPAY | PROVIDERS: PCP Electrodiagnostic Medicine; Visit Provider Physician Assistant | DX: Z98.890 Other specified postprocedural states (principal) | CPT/HCPCS: 99024 ==

== ENCOUNTER → 2025-06-13 08:37 | Outpatient (BNVA) | payer MEDICARE, BC, SELFPAY | PROVIDERS: PCP Electrodiagnostic Medicine; Visit Provider Physician Assistant | DX: Z98.890 Other specified postprocedural states (principal) | CPT/HCPCS: 99024 ==

== ENCOUNTER 2025-06-28 09:55 | Outpatient (RCR) | payer MEDICARE, BC, SELFPAY | END 2025-06-28 23:59 | disposition home or self-care (01) | LOC: SPT 09:55 | PROVIDERS: Visit Provider Physician Assistant | DX: Z47.89 Encounter for other orthopedic aftercare (principal); M25.511 Pain in right shoulder | CPT/HCPCS: 97161 ==